=== PATIENT | male | born 1960 | race Caucasian/White ===

== ENCOUNTER 2017-06-24 16:25 | Emergency (ER) | payer MEDICARE, OTHER ==
--- NOTE | 2017-06-24 16:36 | ERNOTE ---
Medical Problem HPI - General Time Seen by Provider: 06/24/17 16:30 Source: patient Exam Limitations: no limitations - Immun/Allergies/Home Medications Allergies/Adverse Reactions: Allergies Sulfa (Sulfonamide Antibiotics) Allergy (Verified 06/24/17 16:37) Home Medications: HOME MEDICATIONS Aspirin 81 mg PO DAILY 06/24/17 [Last Taken Unknown] Citalopram Hydrobromide [Citalopram HBr] 40 mg PO DAILY 06/24/17 [Last Taken Unknown] Furosemide [Lasix] 40 mg PO DAILY 06/24/17 [Last Taken Unknown] Insulin Glargine,Hum.rec.anlog [Lantus] 20 units SC HS 06/24/17 [Last Taken Unknown] Lisinopril [Zestril] 40 mg PO DAILY 06/24/17 [Last Taken Unknown] Lorazepam [Ativan] 0.5 mg PO TID PRN 06/24/17 [Last Taken Unknown] metFORMIN HCL [Glucophage] 2,000 mg PO DAILY 06/24/17 [Last Taken Unknown] - History of Present History Narrative: Patient is a 56-year-old diabetic male who approximate 45 minutes prior to presentation to the emergency room felt a sudden weakness which was a generalized weakness appointment with the patient fell to his knees. In the exam room as I speak with him he appears confused he speaks very slowly his speech is slightly slurred. Review of Systems - Review of Systems Constitutional: Present: weakness, fatigue, other - weakness and fatigue were sudden approximately 45 minutes prior to presentation to the emergency room EYE: Present: blurred vision ENT: Present: no symptoms reported Respiratory: Present: no symptoms reported Cardiology: Present: no symptoms reported Gastrointestinal/Abdominal: Present: no symptoms reported Genitourinary: Present: no symptoms reported Musculoskeletal: Present: other - weakness of both legs indicated per patient Neurological: Present: no symptoms reported Physical Exam - Physical Exam General Appearance: Present: wd/wn, other - patient is awake he is able to look at me and respond to me his speech is slow minimal slurring appreciated there is no abnormal feces Head Exam: Present: normal inspection, no evidence of injury Eye Exam: Normal inspection: bilateral, PERRL: bilateral, EOMI: bilateral Ears, Nose, Throat: Present: normal ENT inspection, normal pharynx Neck: Present: normal inspection, nontender, supple, full range of motion Respiratory: Present: no respiratory distress, normal breath sounds, no accessory muscle use, chest nontender, lungs clear Cardiovascular/Chest: Present: regular rate, rhythm, no murmur, normal peripheral pulses Gastrointestinal/Abdominal: Present: normal bowel sounds, nontender, nondistended, soft, no organomegaly Extremity Exam: Present: normal inspection, non-tender, normal range of motion Neurological Exam: Present: alert, oriented, normal mood/affect, other - bilateral grasp weakness his speech is slow there is no abnormal facies, he has slight drift on the right upper and lower extremity when examined Skin Exam: Present: normal color, warm/dry ED Progress - Results and Orders Patient's Lab Results:: I have reviewed the patient's lab results. - Vital Signs Patient's Vital Signs:: I have reviewed the patient's vital signs. - EKG EKG: NSR - tachycardia EKG read: Interp. by me - X-Ray X-Ray #1 X-Ray: chest - CT/Ultrasound CT/Ultrasound Narrative: per radiologist Plan - Plan Plan: He still spoke slowly he did not appear as confused but he still had slightly blurry vision. Blurry vision is reported bilaterally. Hypotension of 85/65 with corrected to 98/50 with 2 L of fluids going. Head CT without contrast reveals a left frontal lobe hypodensity area which may represent an area of infarct as per Dr. Kaplan. These findings were discussed with Dr. Martinez who suggested that we transfer the patient to [facility] where there is a full neuro team. At this time [facility] with consultation and I spoke to Dr. burgos in regards to this patient he accepted the patient to their facility for confusion and altered mental status and blurry vision and hypotension. The patient's hypotension is being addressed by IV fluid resuscitation. Since TSH is 5 Departure - Departure Clinical Impression: Confusion, Blurry vision, bilateral Hypotension Qualifiers: Hypotension type: unspecified hypotension type Qualified Code(s): I95.9 - Hypotension, unspecified Disposition: [facility] Condition: Serious
[2017-06-24 16:38] LABS: Hematocrit 43.4 % (42.0-52.0); Hemoglobin 14.9 gm/dL (13.5-18.0); Mean Cell Volume 86.1 fl (78-100); Mean Corpuscular Hemoglobin 29.6 pg (27-31); Mean Corpuscular Hgb Conc 34.3 g/dl (32-36); Mean Platelet Volume 8.6 fl (6.0-9.5); Neutrophil # 3.2 K/mm3 (1.3-6.0); Neutrophil % 44.9 % (42-75.0); Platelet Count 281 K/mm3 (150-450); Red Blood Count 5.04 M/mm3 (4.7-6.0); Red Cell Distribution Width 13.2 % (11.5-14.0); White Blood Count 7.2 K/mm3 (4.0-10.5)
[2017-06-24] MEDS ORDERED: NORMAL SALINE 1,000 ML IV ONE ×3 (16:49→17:03)
[2017-06-24 16:50] LABS: Prothrombin Time (Patient) 10.1 Seconds (9.4-11.4)
[2017-06-24 16:51] LABS: INR 0.97 INR (0.90-1.10); Partial Thrombolplastin Time 25.6 Seconds (24-32)
[2017-06-24 17:09] LABS: Albumin * 3.7 gm/dl (3.4-5.0); Anion Gap 19.5 mmol/L (6.8-13.8); BUN/Creatinine Ratio 11.9 (9.0-21.6); Bilirubin, Total 0.3 mg/dL (0.0-1.1); Ca. Corrected For Albumin 9.4 mg/dL (8.4-10.2); Calcium * 9.5 mg/dL (7.9-10.9); Carbon Dioxide 21.5 mmol/L (24-32.6); TSH * 5.199 uIU/mL (0.358-3.74); Total Protein 7.7 gm/dL (6.2-8.2)
[2017-06-24 17:22] VITALS: BP 84/54
[2017-06-24 17:30] LABS: CKMB 0.7 ng/mL (0.0-9.0); Troponin I Less than 0.017 ng/ml (0.00-0.10)
[2017-06-24 17:35] LABS: Urine Bilirubin Negative (NEGATIVE); Urine Blood Negative /ul (NEGATIVE); Urine Ketone Negative (NEGATIVE); Urine Nitrite Negative (NEGATIVE); Urine Protein Negative (NEGATIVE); Urine Specific Gravity 1.025 SP.GR. (1.005-1.030); Urine Urobilinogen Normal (NORMAL); Urine pH 5.5 pH (5.0-7.0)
[2017-06-24 17:46] LABS: Urine Appearance Clear; Urine Color Yellow
[2017-06-24 17:47] LABS: Urine Bacteria 1+; Urine RBC None Seen /hpf (0-5); Urine WBC 0-5 /hpf (0-5)
[2017-06-24 17:48] LABS: Urine Mucus Moderate - 2+
[2017-06-24 17:49] LABS: Cocaine Ur Negative (NEGATIVE); Urine Barbiturate Negative (NEGATIVE); Urine Benzodiazepines Negative (NEGATIVE); Urine Opiates Negative (NEGATIVE); Urine PCP Negative (NEGATIVE); Urine THC Negative (NEGATIVE)
== END 2017-06-24 17:37 | disposition short-term general hospital (02) ==
LOC: ER 16:25
DX: R41.0 Disorientation, unspecified (principal); H53.8 Other visual disturbances; I95.9 Hypotension, unspecified; E11.9 Type 2 diabetes mellitus without complications; Z79.4 Long term (current) use of insulin